=== PATIENT | female | born 1975 | race Caucasian/White ===

== ENCOUNTER 2016-06-17 19:23 | Emergency (ER) | payer OTHER, MEDICAID ==
[~2016-06-17] VITALS: Ht 160 cm; Wt 86.2 kg
[2016-06-17 19:32] VITALS: BP 129/73
--- NOTE | 2016-06-17 21:08 | NUR ---
40/F BIB FAMILY C/O MID-LOWER BACK PAIN AND LEFT ANKLE 0NE HOUR PRIOR TO TIME OF ARIVAL. PAIN 7/10 SHARP RADIATE TO TOP OF FOOT WHEN LAYING DOWN. 10/10 PAIN WHEN STANDING. PT STATES HER DOG'S LEASH WRAPPED AROUND HER FOOT AND SHE FELL.DENIES N/V/D; SKIN IS PINK/WARM/DRY; AAOX4 WITH EVEN AND STEADY GAIT; LUNGS CLEAR BL; HR EVEN AND REGULAR; PT DENIES ANY FEVER, CP, SOB, OR COUGH AT THIS TIME; VSS; PATIENT POSITIONED FOR COMFORT; HOB ELEVATED; BEDRAILS UP X2; BED DOWN. ER MD MADE AWARE OF PT STATUS.
[2016-06-17] MEDS ORDERED: METHOCARBAMOL 500 MG TAB PO SCH (21:10)
[2016-06-17] MEDS ORDERED: HYDROcodone/APAP 10/325 MG 1 TAB TAB PO ONE (21:10)
--- NOTE | 2016-06-17 21:43 | NUR ---
PT TAKEN TO CT
[2016-06-17 23:04] VITALS: BP 118/65
--- NOTE | 2016-06-17 23:05 | NUR ---
Patient discharged with v/s stable. Written and verbal after care instructions given and explained. Patient alert, oriented and verbalized understanding of instructions. Ambulatory with steady gait. All questions addressed prior to discharge. ID band removed. Patient advised to follow up with PMD. Rx of ROBAXIN, NORCO, MOTRIN given. Patient educated on indication of medication including possible reaction and side effects. Opportunity to ask questions provided and answered.
== END 2016-06-17 23:05 | disposition home or self-care (01) ==
LOC: MED 19:32
DX: S93.402A Sprain of unspecified ligament of left ankle, initial encounter (principal); S39.012A Strain of muscle, fascia and tendon of lower back, initial encounter; R03.0 Elevated blood-pressure reading, without diagnosis of hypertension; Z88.8 Allergy status to other drugs, medicaments and biological substances; Z98.890 Other specified postprocedural states; W01.198A Fall on same level from slipping, tripping and stumbling with subsequent striking against other object, initial encounter; Y93.89 Activity, other specified; Y92.89 Other specified places as the place of occurrence of the external cause; Y99.8 Other external cause status